=== PATIENT | male | born 1975 | race Caucasian/White ===

== ENCOUNTER 2017-09-21 12:08 | Inpatient (IN) | payer OTHER ==
[2017-09-21] MEDS ORDERED: SODIUM CHLORIDE 0.9% 1000 ML INFUS.BAG IV ONE ×2 (14:05→18:21)
[2017-09-21] MEDS ORDERED: ONDANSETRON 4 MG/2 ML VIAL IVPUSH ONE (14:05)
[2017-09-21] MEDS ORDERED: ONDANSETRON 4 MG/2 ML VIAL ONE (14:13)
[2017-09-21 15:08] LABS: ALBUMIN 4.5 g/dl (3.4-5.0); ALK PHOS 77 U/L (45-117); ANION GAP 10 (8-16); BILIRUBIN,TOTAL 0.4 mg/dL (0.2-1.0); BLOOD UREA NITROGEN 19 mg/dL (7-18); CALCIUM 9.2 mg/dL (8.5-10.1); CHLORIDE 105 mmol/L (98-107); CO2 26 mmol/L (21-32); CREATININE 0.6 mg/dL (0.7-1.3); GLUCOSE,RANDOM 142 mg/dL (74-106); LIPASE 46 U/L (73-393); SGPT/ALT 31 U/L (12-78); SODIUM 141 mmol/L (136-145); TOT PROT 8.2 g/dl (6.4-8.2)
[2017-09-21 15:10] LABS: POTASSIUM 4.7 mmol/L (3.5-5.1); SGOT/AST 40 U/L (15-37)
[2017-09-21] MEDS ORDERED: FAMOTIDINE 20 MG/50 ML IVPB 20 MG/50 ML MG IVPB ONE (15:15)
[2017-09-21 15:18] LABS: HEMOGLOBIN 13.6 GM/dL (11.7-16.9)
--- NOTE | 2017-09-21 15:32 | PDOC ---
Attending Attestation - HPI HPI: 09/21/17 15:41 The patient is a 42-year-old male with no significant past medical history, who presents to the emergency department with worsening epigastric abdominal pain. He states the pain started 2 weeks ago, but worsened today. He states the pain radiates to the left back. He endorses nausea and 7 episodes of non-bloody non- bilious vomiting today. The patient denies chest pain, shortness of breath, headache and dizziness. The patient denies fever, chills, diarrhea and constipation. The patient denies dysuria, frequency, urgency and hematuria. He denies alcohol use or tobacco use. - Physicial Exam PE: 09/21/17 15:41 GENERAL: Awake, alert, and fully oriented, in no acute distress HEAD: No signs of trauma EYES: PERRLA, EOMI, sclera anicteric, conjunctiva clear ENT: Auricles normal inspection, hearing grossly normal, nares patent, oropharynx clear without exudates. Moist mucosa NECK: Normal ROM, supple, no lymphadenopathy, JVD, or masses LUNGS: Breath sounds equal, clear to auscultation bilaterally. No wheezes, and no crackles HEART: Regular rate and rhythm, normal S1 and S2, no murmurs, rubs or gallops ABDOMEN: Soft, (+) mild epigastric tenderness, normoactive bowel sounds. No guarding, no rebound. No masses. No CVA ttp. EXTREMITIES: Normal range of motion, no edema. No clubbing or cyanosis. No cords, erythema, or tenderness NEUROLOGICAL: Cranial nerves II through XII grossly intact. Normal speech. SKIN: Warm, Dry, normal turgor, no rashes or lesions noted. BEDSIDE ULTRASOUND: reveals stone in the gallbladder, will order an official. <Kaycee Sawant - Last Filed: 09/21/17 16:03> - Resident Resident Name: Ezekiel Marinelli - ED Attending Attestation I have performed the following: I have examined & evaluated the patient, The case was reviewed & discussed with the resident, I agree w/resident's findings & plan, Exceptions are as noted - Medical Decision Making 09/21/17 15:31 I, Dr. Marjorie Soria, DO, attest that this document has been prepared under my direction and personally reviewed by me in its entirety. I further attest, that it accurately reflects all work, treatment, procedures and medical decision -making performed by me. 09/21/17 15:31 42yo male with epigastric pain today assoc with n/v -burning sensation -suspect gastritis - will check labs, bedside RUQ u/s -will medicated with GI meds and reassess -no cp -no f/c no ruq ttp -no cva ttp no urinary complaints. 09/21/17 16:06 pt with a gallstone on bedside ultrasound - will send for formal u/s given epigastric pain radiating around to the back, elevated AST, n/v 09/21/17 18:15 pt with gallbladder wall thickening, elevated wbc, elevated ast concern for acute priti case discussed with dr. Paulson from surgery - place in obs under medicine npo type and screen coags abx plan for surgery tomorrow 09/21/17 18:[address] bueno for obs placement 09/21/17 18:21 pt updated on plan - agrees to stay for further evaluation 09/21/17 18:[address] Bueno who accept pt to service <Marjorie Soria - Last Filed: 09/21/17 18:34>
[2017-09-21 15:53] LABS: BASO % 0.7 % (0-2.0); EOS % 0.6 % (0-4.5); LYMPH % 5.1 % (8-40); MEAN CELL VOLUME 91.4 fl (80-96); MONO % 2.2 % (3.8-10.2); NEUT % 91.4 % (42.8-82.8); RBC 4.27 M/mm3 (4.00-5.60); WHITE BLOOD COUNT 12.5 K/mm3 (4.0-10.0)
--- NOTE | 2017-09-21 18:14 | PDOC ---
History of Present Illness - General Chief Complaint: Pain Stated Complaint: ABD PAIN Time Seen by Provider: 09/21/17 13:51 History Source: Patient Exam Limitations: No Limitations - History of Present Illness Initial Comments: 09/21/17 18:15 The patient is a 42M with no PMH who presents to the ER with 2 weeks of epigastric abdominal pain. The patient states that his pain is sharp in nature, was previously intermittent but has been constant today, and radiates to his back. He states that he vomited 6 times today which initially started green and then turned to look like coffee-grounds. He denies any fever, chills, CP, SOB. He denies any history of smoking, drinking, recreational drugs, and abdominal surgeries. Past History - Past Medical History Allergies/Adverse Reactions: Allergies Allergy/AdvReac Type Severity Reaction Status Date / Time No Known Allergies Allergy Verified 09/21/17 12:17 COPD: No - Suicide/Smoking/Psychosocial Hx Smoking History: Never smoked Information on smoking cessation initiated: No Hx Alcohol Use: No Drug/Substance Use Hx: No Substance Use Type: None Review of Systems - Review of Systems Able to Perform ROS?: Yes Comments:: 09/21/17 18:22 GENERAL/CONSTITUTIONAL: No fever or chills. No weakness. HEAD, EYES, EARS, NOSE AND THROAT: No change in vision. No ear pain or discharge. No sore throat. CARDIOVASCULAR: No chest pain, palpitations, or lightheadedness. RESPIRATORY: No cough, wheezing, shortness of breath, or hemoptysis. GASTROINTESTINAL: Positive for abdominal pain, nausea, and vomiting. No diarrhea or constipation. GENITOURINARY: No dysuria, frequency, hematuria, or change in urination. MUSCULOSKELETAL: No joint or muscle swelling or pain. No neck or back pain. SKIN: No rash or lesions. NEUROLOGIC: No headache, numbness, tingling, weakness, loss of consciousness, or change in strength/sensation. ENDOCRINE: No increased thirst. No abnormal weight change. HEMATOLOGIC/LYMPHATIC: No anemia, easy bleeding, or history of blood clots. ALLERGIC/IMMUNOLOGIC: No hives or skin allergy. Is the patient limited Kyrgyz proficient: No *Physical Exam - Vital Signs Last Vital Signs Temp Pulse Resp BP Pulse Ox 98.4 F 67 18 130/85 100 09/21/17 12:19 09/21/17 12:19 09/21/17 12:19 09/21/17 12:19 09/21/17 12:19 - Physical Exam Comments: 09/21/17 18:23 GENERAL: Well developed, well nourished. Awake and alert. No acute distress. HEENT: Normocephalic, atraumatic. Hearing grossly normal. Moist mucous membranes. PERRLA, EOMI. No conjunctival pallor. Sclera are non-icteric. NECK: Supple. Full ROM. No JVD. CARDIOVASCULAR: Regular rate and rhythm. No murmurs, rubs, or gallops. PULMONARY: No evidence of respiratory distress. Lungs clear to auscultation bilaterally. No wheezing, rales or rhonchi. ABDOMINAL: Soft. Non-distended. Tender to deep palpation over epigastrium. Negative Thomas's. No RLQ tenderness. GENITOURINARY: No CVA tenderness bilaterally. MUSCULOSKELETAL: Normal range of motion at all joints. No bony deformities or tenderness. EXTREMITIES: No cyanosis. No clubbing. No edema. No calf tenderness. SKIN: Warm and dry. Normal capillary refill. No rashes. No jaundice. NEUROLOGICAL: Alert, awake, appropriate. Cranial nerves 2-12 intact. Normal speech. Gait is normal without ataxia. PSYCHIATRIC: Cooperative. Good eye contact. Appropriate mood and affect. ED Treatment Course - LABORATORY CBC & Chemistry Diagram: 09/22/17 07:00 09/22/17 07:00 - ADDITIONAL ORDERS Additional order review: Laboratory Results 09/21/17 13:13 Sodium 141 Potassium 4.7 Chloride 105 Carbon Dioxide 26 Anion Gap 10 BUN 19 H Creatinine 0.6 L Creat Clearance w eGFR > 60 Random Glucose 142 H Calcium 9.2 Total Bilirubin 0.4 AST 40 H ALT 31 Alkaline Phosphatase 77 Total Protein 8.2 Albumin 4.5 Lipase 46 L 09/21/17 13:13 RBC 4.27 MCV 91.4 MCHC 35.0 RDW 14.0 Neutrophils % 91.4 H Lymphocytes % 5.1 L Monocytes % 2.2 L Eosinophils % 0.6 Basophils % 0.7 - Medications Given in the ED: ED Medications Discontinued Medications Generic Name Dose Route Start Last Admin Trade Name Freq PRN Reason Stop Dose Admin Famotidine/Sodium Chloride 20 mg in 50 mls @ 100 mls/hr 09/21/17 15:15 15:11 Pepcid 20 Mg Premixed Ivpb - IVPB 09/21/17 15:44 100 mls/hr ONCE ONE Administration Ondansetron HCl 4 mg 09/21/17 14:05 09/21/17 14:23 Zofran Injection IVPUSH 09/21/17 14:06 4 mg ONCE ONE Administration Sodium Chloride 1,000 ml 09/21/17 14:05 09/21/17 14:24 Normal Saline - IV 09/21/17 14:06 1,000 ml ONCE ONE Administration Medical Decision Making - Medical Decision Making 09/21/17 18:12 The patient is a 42M with no PMH who presents with epigastric pain radiating to his back. He has no hx of drinking but has TTP over his abdomen making me concerned for pancreatitis, PUD, or hepatobiliary pathology such as cholecystitis. Labs negative. RUQ U/S read: Cholelithiasis is identified. There is mild to moderate diffuse gallbladder wall thickening which may be acute or chronic in nature. No definite biliary tract dilatation is seen. Dr. Paulson recommends obs admission for surgical removal. Dr. Mcadams has been paged 09/21/17 18:35 Dr. Mcadams accepts admission. *DC/Admit/Observation/Transfer Diagnosis at time of Disposition: Cholelithiasis Qualifiers: Cholelithiasis location: other site Biliary obstruction: without biliary obstruction Qualified Code(s): K80.80 - Other cholelithiasis without obstruction - Discharge Dispostion Condition at time of disposition: Stable Admit: Yes - Referrals - Patient Instructions - Post Discharge Activity
[2017-09-21] MEDS ORDERED: AMPICILLIN NA/SULBACTAM NA 1.5 GM in SODIUM CHLORIDE 100 ML IVPB ONE (18:20)
[2017-09-21] MEDS ORDERED: SODIUM CHLORIDE 1,000 ML IV SCH (18:30)
[2017-09-21 18:59] LABS: PLATELET ESTIMATE ADEQUATE
[2017-09-21] MEDS ORDERED: HYDROmorphone HCL CARPU-JECT 1 MG/1 ML DISP.SYRIN IVPB PRN (20:05)
[2017-09-21] MEDS ORDERED: ONDANSETRON 4 MG/2 ML VIAL IVPB PRN (20:07)
[2017-09-21] MEDS ORDERED: morphine SULFATE 4 MG/ML VIAL IVPB PRN (20:13)
[2017-09-21 20:33] LABS: INR 1.13 (0.82-1.09); PROTHROMBIN TIME (PATIENT) 12.8 SEC (9.98-11.88)
[2017-09-21 20:36] LABS: ACTIVATED PTT 36.9 SECONDS (26.9-34.4)
--- NOTE | 2017-09-21 20:57 | HP ---
Admitting History and Physical - Primary Care Physician PCP: Stephanie Mcadams - Admission Chief Complaint: abdominal pain History of Present Illness: 42M with no PMH who presents to the ER with 2 weeks of epigastric abdominal pain. The patient states that his pain is sharp in nature, was previously intermittent but has been constant today, and radiates to his back. He states that he vomited 6 times today which initially started green and then turned to look like coffee-grounds. He denies any fever, chills, CP, SOB. He denies any history of smoking, drinking, recreational drugs, and abdominal surgeries. - Smoking History Smoking history: Never smoked - Alcohol/Substance Use Hx Alcohol Use: No Home Medications - Allergies Allergies/Adverse Reactions: Allergies Allergy/AdvReac Type Severity Reaction Status Date / Time No Known Allergies Allergy Verified 09/21/17 12:17 Physical Examination Vital Signs: Vital Signs Temperature 98.4 F 09/21/17 12:19 Pulse Rate 67 09/21/17 12:19 Respiratory Rate 18 09/21/17 12:19 Blood Pressure 130/85 09/21/17 12:19 O2 Sat by Pulse Oximetry (%) 100 09/21/17 12:19 Constitutional: Yes: No Distress HENT: Yes: Atraumatic Neck: Yes: Supple Cardiovascular: Yes: Regular Rate and Rhythm Respiratory: Yes: CTA Bilaterally Gastrointestinal: Yes: Normal Bowel Sounds Extremities: Yes: WNL Peripheral Pulses WNL: Yes Neurological: Yes: Alert, Oriented Labs: CBC, BMP 09/21/17 13:13 09/21/17 13:13 Imaging - Results Ultrasound: Report Reviewed Problem List - Problems (1) Cholelithiasis Assessment/Plan: npo, ivf iv abx gi/surgery consult Code(s): K80.20 - CALCULUS OF GALLBLADDER W/O CHOLECYSTITIS W/O OBSTRUCTION Qualifiers: Cholelithiasis location: other site Biliary obstruction: without biliary obstruction Qualified Code(s): K80.80 - Other cholelithiasis without obstruction Assessment/Plan Laboratory Tests 09/21/17 09/21/17 09/21/17 13:13 13:13 19:30 WBC 12.5 H RBC 4.27 Hgb 13.6 Hct 39.0 MCV 91.4 MCH 32.0 MCHC 35.0 RDW 14.0 Plt Count No Result Required. Neutrophils % 91.4 H Lymphocytes % 5.1 L Monocytes % 2.2 L Eosinophils % 0.6 Basophils % 0.7 Platelet Estimate Adequate Platelet Comment PT with INR 12.80 H INR 1.13 PTT (Actin FS) 36.9 H Sodium 141 Potassium 4.7 Chloride 105 Carbon Dioxide 26 Anion Gap 10 BUN 19 H Creatinine 0.6 L Creat Clearance w eGFR > 60 Random Glucose 142 H Calcium 9.2 Total Bilirubin 0.4 AST 40 H ALT 31 Alkaline Phosphatase 77 Total Protein 8.2 Albumin 4.5 Lipase 46 L Active Medications Generic Name Dose Route Start Last Admin Trade Name Freq PRN Reason Stop Dose Admin Sodium Chloride 1,000 mls @ 75 mls/hr 09/21/17 20:15 Normal Saline - IV ASDIR ESMER Morphine Sulfate 2 mg 09/21/17 20:13 Morphine Sulfate IVPB Q4H PRN PAIN SCALE 6-10 Ondansetron HCl 4 mg 09/21/17 20:07 Zofran Injection IVPB Q4H PRN NAUSEA AND/OR VOMITING
[2017-09-21] MEDS: SODIUM CHLORIDE 1,000 ML IV SCH (21:14)
[2017-09-22 00:51] VITALS: BMI 28.3
[2017-09-22] MEDS: PIPERACILLIN/TAZOB 3.375 GM 3.375 GM in DEXTROSE 5%-WATER - 50 ML IVPB SCH ×2 (01:36→09:33)
[2017-09-22 08:28] LABS: BASO % 1.1 % (0-2.0); EOS % 10.8 % (0-4.5); HEMATOCRIT 35.9 % (35.4-49); HEMOGLOBIN 12.2 GM/dL (11.7-16.9); LYMPH % 22.2 % (8-40); MCH 31.4 pg (25.7-33.7); MEAN CELL VOLUME 92.2 fl (80-96); MEAN PLT VOLUME 8.9 fl (7.5-11.1); MONO % 5.4 % (3.8-10.2); NEUT % 60.5 % (42.8-82.8); PLATELET COUNT 214 K/MM3 (134-434); RBC 3.89 M/mm3 (4.00-5.60); RDW 13.8 % (11.9-15.9); WHITE BLOOD COUNT 7.2 K/mm3 (4.0-10.0)
[2017-09-22 08:56] LABS: ALBUMIN 3.6 g/dl (3.4-5.0); ANION GAP 10 (8-16); BLOOD UREA NITROGEN 13 mg/dL (7-18); CALCIUM 8.3 mg/dL (8.5-10.1); CHLORIDE 109 mmol/L (98-107); CO2 25 mmol/L (21-32); GLUCOSE,RANDOM 103 mg/dL (74-106); POTASSIUM 3.8 mmol/L (3.5-5.1); SODIUM 144 mmol/L (136-145)
[2017-09-22 09:00] LABS: ALK PHOS 64 U/L (45-117); BILIRUBIN,TOTAL 0.7 mg/dL (0.2-1.0); CREATININE 0.5 mg/dL (0.7-1.3); SGOT/AST 12 U/L (15-37); SGPT/ALT 21 U/L (12-78); TOT PROT 6.5 g/dl (6.4-8.2)
[2017-09-22 11:37] LABS: URINE APPEARANCE CLEAR; URINE BILIRUBIN NEGATIVE (<2.0 mg/dL); URINE BLOOD NEGATIVE (NEGATIVE); URINE COLOR YELLOW; URINE GLUCOSE (UA) NEGATIVE (NEGATIVE); URINE KETONE NEGATIVE (NEGATIVE); URINE LEUK ESTERASE NEGATIVE (NEGATIVE); URINE NITRITE NEGATIVE (NEGATIVE); URINE PROTEIN NEGATIVE (NEGATIVE); URINE UROBILINOGEN NEGATIVE mg/dL (0.2-1.0)
--- NOTE | 2017-09-22 12:21 | CON.ID ---
Consult Consult Specialty:: infectious diseases Reason for Consultation:: epigastric pain - History of Present Illness Chief Complaint: abd pain ruq and mid epigastric History of Present Illness: The patient is a 42-year-old male with no significant past medical history, admitted because of worsening epigastric abdominal pain. He states the pain started 2 weeks ago, but worsened today. He states the pain radiates to the left back. He endorses nausea and 7 episodes of non-bloody non-bilious vomiting currently patient feels better. he mentions that the pain is mainly epigastric and denies rt upper quadrant pain on admission patient had leukocytosis which ahs since then resolved - History Source History Provided By: Patient, Medical Record Limitations to Obtaining History: Language Barrier - Alcohol/Substance Use Hx Alcohol Use: No - Smoking History Smoking history: Never smoked Home Medications - Allergies Allergies/Adverse Reactions: Allergies Allergy/AdvReac Type Severity Reaction Status Date / Time No Known Allergies Allergy Verified 09/21/17 12:17 Review of Systems - Review of Systems Constitutional: reports: No Symptoms Eyes: reports: No Symptoms HENT: reports: No Symptoms Neck: reports: No Symptoms Cardiovascular: reports: No Symptoms Respiratory: reports: No Symptoms Gastrointestinal: reports: Abdominal Pain, Nausea, Vomiting Musculoskeletal: reports: No Symptoms Integumentary: reports: No Symptoms Neurological: reports: No Symptoms Endocrine: reports: No Symptoms Hematology/Lymphatic: reports: No Symptoms Psychiatric: reports: No Symptoms Physical Exam Vital Signs: Vital Signs Temperature 98.9 F 09/22/17 09:00 Pulse Rate 71 09/22/17 09:00 Respiratory Rate 16 09/22/17 09:00 Blood Pressure 123/73 09/22/17 09:00 O2 Sat by Pulse Oximetry (%) 98 09/21/17 22:00 Constitutional: Yes: Well Nourished, No Distress, Calm Cardiovascular: Yes: Regular Rate and Rhythm Respiratory: Yes: Regular, CTA Bilaterally Gastrointestinal: Yes: Normal Bowel Sounds, Soft Musculoskeletal: Yes: WNL Extremities: Yes: WNL Neurological: Yes: Alert, Oriented Psychiatric: Yes: Alert, Oriented Labs: CBC, BMP 09/22/17 07:00 09/22/17 07:00 Assessment/Plan Problem List - Problems (1) Cholelithiasis Code(s): K80.20 - CALCULUS OF GALLBLADDER W/O CHOLECYSTITIS W/O OBSTRUCTION Qualifiers: Cholelithiasis location: other site Biliary obstruction: without biliary obstruction Qualified Code(s): K80.80 - Other cholelithiasis without obstruction plan continue current mgmt await for surgery to see the patient once we know the plan we can switch to oral abx rest as per the team
--- NOTE | 2017-09-22 12:58 | CON.GI ---
Consult Consult Specialty:: GI Reason for Consultation:: epigastric pain - History of Present Illness History of Present Illness: chart reviewed. per ED intake: 42M no significant past medical history, who presents to the emergency department with worsening epigastric abdominal pain. He states the pain started 2 weeks ago, but worsened today. He states the pain radiates to the left back. He endorses nausea and 7 episodes of non-bloody non-bilious vomiting today. The patient denies chest pain, shortness of breath, headache and dizziness. The patient denies fever, chills, diarrhea and constipation. The patient denies dysuria, frequency, urgency and hematuria. He denies alcohol use or tobacco use. US of the RUQ: cholelithiasis, thickend GB wall. No pericholecystic fluid. Normal CBD. On Unasyn, morphine and zofran Mild leukocytosis on admission, resolved Normal liver chemistry, bilirubin and ALP At the time of this encounter, the patient is eating regular diet, not in pain, comfortable. Denies jaundice, chills, fever in the last 2 weeks. The epigastric pain is unrelated to diet. No alleviating, or aggravating factors. Had very mild, self-limited epigastric pain 2 weeks ago. Reports no history of dysphagia , odynophagia, GERD-like symptoms. No history of suspected PUD, pancreatitis, or liver disease. No chronic NSAIDs, Alcohol. Not on any chronic medications at home - History Source History Provided By: Patient, Medical Record Limitations to Obtaining History: No Limitations - Alcohol/Substance Use Hx Alcohol Use: No - Smoking History Smoking history: Never smoked Home Medications - Allergies Allergies/Adverse Reactions: Allergies Allergy/AdvReac Type Severity Reaction Status Date / Time No Known Allergies Allergy Verified 09/21/17 12:17 Family Disease History - Family Disease History Family History: Unremarkable Review of Systems Findings/Remarks: as per HPI, H&P Physical Exam-GI Vital Signs: Vital Signs Temperature 98.9 F 09/22/17 09:00 Pulse Rate 71 09/22/17 09:00 Respiratory Rate 16 09/22/17 09:00 Blood Pressure 123/73 09/22/17 09:00 O2 Sat by Pulse Oximetry (%) 98 09/21/17 22:00 Constitutional: Yes: No Distress Eyes: Yes: Conjunctiva Clear HENT: Yes: Atraumatic Neck: Yes: Supple Cardiovascular: Yes: Regular Rate and Rhythm. No: Bradycardia, Tachycardia Respiratory: Yes: Regular, CTA Bilaterally ...Auscultate: Yes: Normoactive Bowel Sounds ...Palpate: Yes: Soft, Other (negative hector's). No: Firm/Rigid, Guarding, Mass, Tenderness Neurological: Yes: Alert, Oriented Labs: CBC, BMP 09/22/17 07:00 09/22/17 07:00 INR, PTT INR 1.13 (0.82-1.09) 09/21/17 19:30 Laboratory Tests 09/21/17 09/21/17 09/21/17 13:13 13:13 19:30 WBC 12.5 H RBC 4.27 Hgb 13.6 Hct 39.0 MCV 91.4 MCH 32.0 MCHC 35.0 RDW 14.0 Plt Count No Result Required. MPV Neutrophils % 91.4 H Lymphocytes % 5.1 L Monocytes % 2.2 L Eosinophils % 0.6 Basophils % 0.7 Platelet Estimate Adequate Platelet Comment PT with INR 12.80 H INR 1.13 PTT (Actin FS) 36.9 H Sodium 141 Potassium 4.7 Chloride 105 Carbon Dioxide 26 Anion Gap 10 BUN 19 H Creatinine 0.6 L Creat Clearance w eGFR > 60 Random Glucose 142 H Calcium 9.2 Total Bilirubin 0.4 AST 40 H ALT 31 Alkaline Phosphatase 77 Total Protein 8.2 Albumin 4.5 Lipase 46 L Urine Color Urine Appearance Urine pH Ur Specific [place] Urine Protein Urine Glucose (UA) Urine Ketones Urine Blood Urine Nitrite Urine Bilirubin Urine Urobilinogen Ur Leukocyte Esterase Blood Type Antibody Screen 09/21/17 09/22/17 09/22/17 19:30 07:00 07:00 WBC 7.2 D RBC 3.89 L Hgb 12.2 D Hct 35.9 MCV 92.2 MCH 31.4 MCHC 34.0 RDW 13.8 Plt Count 214 MPV 8.9 Neutrophils % 60.5 D Lymphocytes % 22.2 D Monocytes % 5.4 D Eosinophils % 10.8 H D Basophils % 1.1 Platelet Estimate Platelet Comment PT with INR INR PTT (Actin FS) Sodium 144 Potassium 3.8 Chloride 109 H Carbon Dioxide 25 Anion Gap 10 BUN 13 D Creatinine 0.5 L Creat Clearance w eGFR > 60 Random Glucose 103 D Calcium 8.3 L Total Bilirubin 0.7 D AST 12 L D ALT 21 D Alkaline Phosphatase 64 Total Protein 6.5 D Albumin 3.6 Lipase Urine Color Urine Appearance Urine pH Ur Specific [place] Urine Protein Urine Glucose (UA) Urine Ketones Urine Blood Urine Nitrite Urine Bilirubin Urine Urobilinogen Ur Leukocyte Esterase Blood Type A POSITIVE Antibody Screen Negative 09/22/17 10:45 WBC RBC Hgb Hct MCV MCH MCHC RDW Plt Count MPV Neutrophils % Lymphocytes % Monocytes % Eosinophils % Basophils % Platelet Estimate Platelet Comment PT with INR INR PTT (Actin FS) Sodium Potassium Chloride Carbon Dioxide Anion Gap BUN Creatinine Creat Clearance w eGFR Random Glucose Calcium Total Bilirubin AST ALT Alkaline Phosphatase Total Protein Albumin Lipase Urine Color Yellow Urine Appearance Clear Urine pH 6.0 Ur Specific [place] 1.024 Urine Protein Negative Urine Glucose (UA) Negative Urine Ketones Negative Urine Blood Negative Urine Nitrite Negative Urine Bilirubin Negative Urine Urobilinogen Negative Ur Leukocyte Esterase Negative Blood Type Antibody Screen Imaging - Results Ultrasound: Report Reviewed Problem List - Problems (1) Epigastric abdominal pain Code(s): R10.13 - EPIGASTRIC PAIN (2) Cholelithiasis Code(s): K80.20 - CALCULUS OF GALLBLADDER W/O CHOLECYSTITIS W/O OBSTRUCTION Qualifiers: Cholelithiasis location: other site Biliary obstruction: without biliary obstruction Qualified Code(s): K80.80 - Other cholelithiasis without obstruction Assessment/Plan A 42M with the above-described symptoms, cholelithiasis and leukocytosis on admission. On Unasyn, morphine and Zofran. Asymptomatic and with normal liver chemistry and lipse at the time of this encounter. Symptomatic cholelithiasis ?mild acute/chronic cholecystitis, ? normal liver chemistry. R/o PUD, gastritis, esophagitis Surgical evaluation pending Add PPI po NPO from now IVF EGD would be helpful
[2017-09-22] MEDS: SODIUM CHLORIDE 1,000 ML IV SCH ×2 (16:06→20:22)
--- NOTE | 2017-09-22 17:01 | EKG ---
Test Reason : Blood Pressure : / mmHG Vent. Rate : 074 BPM Atrial Rate : 074 BPM P-R Int : 196 ms QRS Dur : 112 ms QT Int : 394 ms P-R-T Axes : 044 050 032 degrees QTc Int : 437 ms NORMAL SINUS RHYTHM NORMAL ECG NO PREVIOUS ECGS AVAILABLE Confirmed by MD Doc, Bernardino ([id number]) on 09/22/2017 5:01:13 PM Referred By: Confirmed By:Bernardino Roach MD
--- NOTE | 2017-09-22 17:24 | PN ---
Progress Note, Physician History of Present Illness: no pain - Current Medication List Current Medications: Active Medications Sodium Chloride (Normal Saline -) 1,000 mls @ 75 mls/hr IV ASDIR ESMER Last Admin: 09/22/17 16:06 Dose: 75 mls/hr Ampicillin Sodium/Sulbactam (Sodium 3 gm/ Sodium Chloride) 100 mls @ 200 mls/ hr IVPB Q8H-IV ESMER Morphine Sulfate (Morphine Sulfate) 2 mg IVPB Q4H PRN PRN Reason: PAIN SCALE 6-10 Ondansetron HCl (Zofran Injection) 4 mg IVPB Q4H PRN PRN Reason: NAUSEA AND/OR VOMITING - Objective Vital Signs: Vital Signs Temperature 98.2 F 09/22/17 14:44 Pulse Rate 67 09/22/17 14:44 Respiratory Rate 16 09/22/17 14:44 Blood Pressure 101/62 09/22/17 14:44 O2 Sat by Pulse Oximetry (%) 98 09/22/17 09:00 Constitutional: Yes: No Distress HENT: Yes: Atraumatic Neck: Yes: Supple Cardiovascular: Yes: Regular Rate and Rhythm Respiratory: Yes: CTA Bilaterally Gastrointestinal: Yes: Normal Bowel Sounds Extremities: Yes: WNL Labs: CBC, BMP 09/22/17 07:00 09/22/17 07:00 INR, PTT INR 1.13 (0.82-1.09) 09/21/17 19:30 Problem List - Problems (1) Cholelithiasis Assessment/Plan: surgery consult pending possible OR tomorow Code(s): K80.20 - CALCULUS OF GALLBLADDER W/O CHOLECYSTITIS W/O OBSTRUCTION Qualifiers: Cholelithiasis location: other site Biliary obstruction: without biliary obstruction Qualified Code(s): K80.80 - Other cholelithiasis without obstruction
[2017-09-22] MEDS: AMPICILLIN NA/SULBACTAM NA 3 GM in SODIUM CHLORIDE 100 ML IVPB SCH (17:51)
[2017-09-22] MEDS: PANTOPRAZOLE 40 MG TABLET (FP) PO SCH (20:34)
[2017-09-23] MEDS: AMPICILLIN NA/SULBACTAM NA 3 GM in SODIUM CHLORIDE 100 ML IVPB SCH ×2 (01:16→09:41)
--- NOTE | 2017-09-23 07:01 | CONSULT ---
- Consultation REQUESTING PROVIDER: Pema CASTRO CONSULT REQUEST: We have been asked to surgically evaluate this patient for abdominal pain due to symptomatic gallbladder disease PCP:Stephanie Mcadams HISTORY OF PRESENT ILLNESS: 42 y/o male presented w/nausea and vomiting and abdominal pain over # days; w/u reveals cholelithiasis and cholecystitis. PMHx: none PSHx: none Allergies Allergy/AdvReac Type Severity Reaction Status Date / Time No Known Allergies Allergy Verified 09/21/17 12:17 PHYSICAL EXAM: GENERAL: Awake, alert, and fully oriented, in no acute distress. HEAD: Normal with no signs of trauma. EYES: sclera anicteric, conjunctiva clear. NECK: Normal ROM, supple without lymphadenopathy, JVD, or masses. ABDOMEN: Soft, slight RUQ tenderness to palpation, not distended, normoactive bowel sounds, no guarding, no rebound, no masses. No organomegaly. No hernias MUSCULOSKELETAL: Normal ROM at all joints. No bony deformities or tenderness. No CVA tenderness. UPPER EXTREMITIES: 2+ pulses, warm, well-perfused. No cyanosis. Cap refill <2 seconds. No peripheral edema. LOWER EXTREMITIES: 2+ pulses, warm, well-perfused. No calf tenderness. No peripheral edema. NEUROLOGICAL: Normal speech, gait not observed. PSYCH: Cooperative. Good eye contact. Appropriate mood and affect. SKIN: Warm, dry, normal turgor, no rashes or lesions noted. Vital Signs Temperature 99.4 F 09/22/17 16:20 Pulse Rate 66 09/22/17 16:20 Respiratory Rate 20 09/22/17 21:00 Blood Pressure 110/68 09/22/17 16:20 O2 Sat by Pulse Oximetry (%) 98 09/22/17 21:00 Lab Results WBC 7.2 K/mm3 (4.0-10.0) D 09/22/17 07:00 RBC 3.89 M/mm3 (4.00-5.60) L 09/22/17 07:00 Hgb 12.2 GM/dL (11.7-16.9) D 09/22/17 07:00 Hct 35.9 % (35.4-49) 09/22/17 07:00 MCV 92.2 fl (80-96) 09/22/17 07:00 MCHC 34.0 g/dl (32.0-35.9) 09/22/17 07:00 RDW 13.8 % (11.9-15.9) 09/22/17 07:00 Plt Count 214 K/MM3 (134-434) 09/22/17 07:00 Sodium 144 mmol/L (136-145) 09/22/17 07:00 Potassium 3.8 mmol/L (3.5-5.1) 09/22/17 07:00 Chloride 109 mmol/L (98-107) H 09/22/17 07:00 Carbon Dioxide 25 mmol/L (21-32) 09/22/17 07:00 Anion Gap 10 (8-16) 09/22/17 07:00 BUN 13 mg/dL (7-18) D 09/22/17 07:00 Creatinine 0.5 mg/dL (0.7-1.3) L 09/22/17 07:00 Random Glucose 103 mg/dL (74-106) D 09/22/17 07:00 Calcium 8.3 mg/dL (8.5-10.1) L 09/22/17 07:00 Blood Type A POSITIVE 09/21/17 19:30 Antibody Screen Negative 09/21/17 19:30 INR 1.13 (0.82-1.09) 09/21/17 19:30 W/U to date reviewed IMP: acute cholecystitis; cholelithiasis PLAN: D/w patient and family lap priti possible open 09/23/17; he is amenable to this; r/b/t/a's d/w him in [place] including conversion to an open procedure and informed consent obtained. Jerald Paulson MD FACS Visit type - Case Type Case Type: ED Admission - Emergency Emergency Visit: Yes ED Registration Date: 09/21/17 Care time: The patient presented to the Emergency Department on the above date and was hospitalized for further evaluation of their emergent condition. - New patient This patient is new to me today: Yes Date on this admission: 09/23/17 - Critical Care Critical Care patient: No
[2017-09-23] MEDS: PANTOPRAZOLE 40 MG TABLET (FP) PO SCH (09:42)
--- NOTE | 2017-09-23 11:06 | PN ---
Progress Note, Physician - Current Medication List Current Medications: Active Medications Sodium Chloride (Normal Saline -) 1,000 mls @ 75 mls/hr IV ASDIR [facility] Last Admin: 09/22/17 20:22 Dose: Not Given Ampicillin Sodium/Sulbactam (Sodium 3 gm/ Sodium Chloride) 100 mls @ 200 mls/ hr IVPB Q8H-IV [facility] Last Admin: 09/23/17 09:41 Dose: 200 mls/hr Morphine Sulfate (Morphine Sulfate) 2 mg IVPB Q4H PRN PRN Reason: PAIN SCALE 6-10 Ondansetron HCl (Zofran Injection) 4 mg IVPB Q4H PRN PRN Reason: NAUSEA AND/OR VOMITING Pantoprazole Sodium (Protonix -) 40 mg PO DAILY [facility] Last Admin: 09/23/17 09:42 Dose: 40 mg - Objective Vital Signs: Vital Signs Temperature 97.9 F 09/23/17 07:12 Pulse Rate 64 09/23/17 07:12 Respiratory Rate 20 09/23/17 07:12 Blood Pressure 97/50 09/23/17 07:12 O2 Sat by Pulse Oximetry (%) 98 09/22/17 21:00 Labs: CBC, BMP 09/22/17 07:00 09/22/17 07:00 INR, PTT INR 1.13 (0.82-1.09) 09/21/17 19:30
[2017-09-23] MEDS ORDERED: MIDAZOLAM HCL 2 MG/2 ML SINGLE DOSE VIAL ONE (13:39)
[2017-09-23] MEDS ORDERED: ROCURONIUM BROMIDE 50 MG/5 ML VIAL ONE ×2 (13:44→14:13)
[2017-09-23] MEDS ORDERED: PROPOFOL 20 ML ONE (13:45)
[2017-09-23] MEDS ORDERED: BUPIVACAINE HCL/PF 0.5% (5MG/ML) 10 ML VIAL IJ ONE ×2 (14:14→15:14)
[2017-09-23] MEDS ORDERED: LIDOCAINE HCL/PF 2% SDV 5ML VIAL ONE (14:57)
[2017-09-23] MEDS ORDERED: DEXAMETHASONE SOD PHOSPHATE 4 MG/1 ML VIAL ONE (14:57)
[2017-09-23] MEDS ORDERED: GLYCOPYRROLATE 0.2 MG/1 ML VIAL ONE (14:57)
[2017-09-23] MEDS ORDERED: LIDOCAINE HCL 2% JELLY (5 ML/TUBE) ONE (14:57)
[2017-09-23] MEDS ORDERED: NEOSTIGMINE METHYLSULFATE 0.5 MG/ML - 10 ML MDV ONE (14:59)
--- NOTE | 2017-09-23 15:23 | PN ---
Progress Note, Physician - Current Medication List Current Medications: Active Medications Sodium Chloride (Normal Saline -) 1,000 mls @ 75 mls/hr IV ASDIR [facility] Last Admin: 09/22/17 20:22 Dose: Not Given Ampicillin Sodium/Sulbactam (Sodium 3 gm/ Sodium Chloride) 100 mls @ 200 mls/ hr IVPB Q8H-IV [facility] Last Admin: 09/23/17 09:41 Dose: 200 mls/hr Morphine Sulfate (Morphine Sulfate) 2 mg IVPB Q4H PRN PRN Reason: PAIN SCALE 6-10 Ondansetron HCl (Zofran Injection) 4 mg IVPB Q4H PRN PRN Reason: NAUSEA AND/OR VOMITING Pantoprazole Sodium (Protonix -) 40 mg PO DAILY [facility] Last Admin: 09/23/17 09:42 Dose: 40 mg - Objective Vital Signs: Vital Signs Temperature 98.4 F 09/23/17 09:00 Pulse Rate 104 H 09/23/17 09:00 Respiratory Rate 16 09/23/17 09:00 Blood Pressure 127/71 09/23/17 09:00 O2 Sat by Pulse Oximetry (%) 98 09/23/17 09:00 Constitutional: Yes: No Distress HENT: Yes: Atraumatic Neck: Yes: Supple Cardiovascular: Yes: Regular Rate and Rhythm Respiratory: Yes: CTA Bilaterally Gastrointestinal: Yes: Hypoactive Bowel Sounds, Tenderness Extremities: Yes: WNL Labs: CBC, BMP 09/22/17 07:00 09/22/17 07:00 INR, PTT INR 1.13 (0.82-1.09) 09/21/17 19:30 Problem List - Problems (1) Cholelithiasis Assessment/Plan: s/p surgery Code(s): K80.20 - CALCULUS OF GALLBLADDER W/O CHOLECYSTITIS W/O OBSTRUCTION Qualifiers: Cholelithiasis location: other site Biliary obstruction: without biliary obstruction Qualified Code(s): K80.80 - Other cholelithiasis without obstruction
[2017-09-23] MEDS ORDERED: BENZOIN/ALOE VERA/STORAX/TOLU 58 ML BOTTLE ONE (15:26)
[2017-09-23] MEDS ORDERED: oxyCODONE HCL 5 MG TABLET PO PRN (15:48)
[2017-09-23] MEDS ORDERED: SODIUM CHLORIDE 1,000 ML IV SCH (15:57)
[2017-09-23] MEDS ORDERED: ONDANSETRON 4 MG/2 ML VIAL IVPB PRN (15:57)
[2017-09-23] MEDS ORDERED: ONDANSETRON 4 MG/2 ML VIAL IVPUSH PRN (15:59)
--- NOTE | 2017-09-23 15:59 | OP ---
Operative Note - Note: Operative Date: 09/23/17 Pre-Operative Diagnosis: cholelithiasis, acute cholecystitis Operation: laparoscopic cholecystectomy Post-Operative Diagnosis: Same as Pre-op Surgeon: Jerald Paulson Content Strategist: June Lion Anesthesiologist/RECORDS CLERK: Jennifer Guerrier MD Anesthesia: General Specimens Removed: gallbladder Estimated Blood Loss (mls): 25 Fluid Volume Replaced (mls): 1,200 Operative Report Dictated: Yes
[2017-09-23] MEDS ORDERED: LACTATED RINGERS SOLUTION 1,000 ML IV SCH (16:00)
--- NOTE | 2017-09-23 16:01 | SURG ---
Surgery Automobile Radio Repairer Note Automobile Radio Repairer: June Lion PA-C Date of Service: 09/23/17 Diagnosis: Cholelithiasis, acute cholecystitis Procedure: laparoscopic cholecystectomy I was present for the entirety of the operative procedure. For further detail, please refer to operative report. Visit type - Case Type Case Type: ED Admission - Emergency Emergency Visit: Yes ED Registration Date: 09/21/17 Care time: The patient presented to the Emergency Department on the above date and was hospitalized for further evaluation of their emergent condition. - New patient This patient is new to me today: Yes Date on this admission: 09/23/17
[2017-09-23] MEDS: ACETAMINOPHEN 325 MG TABLET (FP) PO PRN (18:50)
[2017-09-23] MEDS: oxyCODONE HCL 5 MG TABLET PO PRN (18:51)
[2017-09-23] MEDS: HEPARIN NA (PORCINE) 5,000 UNITS/ML 1ML VIAL SQ SCH (21:24)
[2017-09-24] MEDS: HEPARIN NA (PORCINE) 5,000 UNITS/ML 1ML VIAL SQ SCH ×2 (06:10→15:37)
[2017-09-24 08:06] LABS: BASO % 0.6 % (0-2.0); EOS % 0.9 % (0-4.5); HEMATOCRIT 34.4 % (35.4-49); HEMOGLOBIN 12.4 GM/dL (11.7-16.9); LYMPH % 19.2 % (8-40); MCH 32.1 pg (25.7-33.7); MEAN CELL VOLUME 89.3 fl (80-96); MEAN PLT VOLUME 8.5 fl (7.5-11.1); MONO % 6.1 % (3.8-10.2); NEUT % 73.2 % (42.8-82.8); PLATELET COUNT 221 K/MM3 (134-434); RBC 3.85 M/mm3 (4.00-5.60); RDW 13.4 % (11.9-15.9)
--- NOTE | 2017-09-24 08:09 | PN ---
Progress Note (short form) - Note Progress Note: POD#1 Pt without complaints of nausea, tolerated clears and would like more to eat. Voiding without difficulty. Minimal pain. Vital Signs Period Temp Pulse Resp BP Sys/Gomez Pulse Ox Last 24 Hr 97.8 F-99.1 F 67-104 16-18 109-131/20-84 97-100 GEN:A&0x3, NAD CV: RRR Lungs: CTA b/l ABD: soft, non-distended, inc tenderness. Inc c/d/i with bandaids. LE: no calf tenderness, SCDs in place. Problem List - Problems (1) S/P laparoscopic cholecystectomy Assessment/Plan: POD#1, doing well surgically Diet advanced this am to regular cbc/chem with LFTS pending D/w Dr. Paulson, plan for discharge today if labs WNL and tolerates diet DVT ppx with heparin SQ/ambulate/SCDs Code(s): Z90.49 - ACQUIRED ABSENCE OF OTHER SPECIFIED PARTS OF DIGESTIVE TRACT
[2017-09-24 08:29] LABS: ALBUMIN 3.6 g/dl (3.4-5.0); ANION GAP 11 (8-16); CALCIUM 8.3 mg/dL (8.5-10.1); CHLORIDE 103 mmol/L (98-107); CO2 26 mmol/L (21-32); GLUCOSE,RANDOM 94 mg/dL (74-106); POTASSIUM 3.5 mmol/L (3.5-5.1); SODIUM 140 mmol/L (136-145)
[2017-09-24 08:34] LABS: ALK PHOS 67 U/L (45-117); BILIRUBIN,TOTAL 0.5 mg/dL (0.2-1.0); BLOOD UREA NITROGEN 11 mg/dL (7-18); CREATININE 0.5 mg/dL (0.7-1.3); SGOT/AST 16 U/L (15-37); SGPT/ALT 22 U/L (12-78); TOT PROT 6.5 g/dl (6.4-8.2)
[2017-09-24] MEDS ORDERED: PANTOPRAZOLE 40 MG TABLET (FP) PO SCH (10:00)
[2017-09-24] MEDS: oxyCODONE HCL 5 MG TABLET PO PRN (10:25)
[2017-09-24] MEDS: ACETAMINOPHEN 325 MG TABLET (FP) PO PRN (10:26)
--- NOTE | 2017-09-24 10:47 | OP ---
DATE OF OPERATION: 09/23/2017 PREOPERATIVE DIAGNOSIS: Acute cholecystitis and cholelithiasis. POSTOPERATIVE DIAGNOSIS: Acute cholecystitis and cholelithiasis. PROCEDURE: Laparoscopic cholecystectomy. SURGEON: Jerald Paulson MD SAW HANDLE ASSEMBLER: June Lion PA-C ANESTHESIA: General. OPERARTIVE FINDINGS: Acute cholecystitis and cholelithiasis. The rest of the findings were unremarkable. DESCRIPTION OF PROCEDURE: The patient was placed on the operating room table in supine position. After the induction of general anesthesia, the patient's abdomen was prepped with ChloraPrep and draped in sterile fashion. Time-out was taken and then pneumoperitoneum established above the umbilicus using a Veress needle. Once 15 mm of intra-abdominal pressure was obtained, a 5-mm port was placed at the umbilicus. Additional lateral 5-mm ports and a subxiphoid 12-mm port were placed and laparoscopy carried out, and the previously noted findings were observed. The gallbladder was placed on cephalad and lateral traction, and dissection was begun at the neck of the gallbladder where the peritoneum was opened medially and laterally using blunt and sharp dissection and electrocautery. Dissection continued in the triangle of Calot where the cystic duct was identified coursing from the neck of the gallbladder distally to the common bile duct. It was dissected proximally and distally for length. Similarly, the artery was similarly identified and dissected. A critical view of safety was taken, and then the cystic duct divided proximally and distally using Endo Simon after it was clipped twice proximally and distally with large hemoclips. The artery was similarly clipped and divided. Hemostasis was checked for and noted to be good and then the gallbladder was removed from the liver bed in a retrograde fashion using electrocautery. Prior to removal from the edge of the liver, hemostasis was again verified and then the gallbladder removed from the edge of the liver, placed in an EndoCatch, and brought out through the subxiphoid port. Pneumoperitoneum was reestablished, hemostasis verified again, and then the 5-mm lateral and subxiphoid ports were removed under laparoscopic vision without evidence of bleeding from the port sites. The umbilical port was removed and the pneumoperitoneum evacuated. All port sites were infiltrated with 0.5% Marcaine and the skin edges closed with 4-0 Biosyn in a subcuticular and continuous fashion. Steri-Strips and Band-Aid dressings were placed and the procedure terminated at this point and the patient aroused from general anesthesia and transferred to the post anesthesia care unit in stable condition awake and alert. ESTIMATED BLOOD LOSS: 25 mL. REPLACEMENTS: Crystalloid. DRAINS: None. SPECIMENS: Gallbladder and contents to pathology. I, Jerald Paulson, was physically present in the operating room from the time the patient was placed on the operating room table until he was transferred to the post anesthesia care unit in my company. MD HARI Muñoz/[id number] MTDD
--- NOTE | 2017-09-24 14:23 | PN ---
Progress Note, Physician - Current Medication List Current Medications: Active Medications Acetaminophen (Tylenol -) 650 mg PO Q4H PRN PRN Reason: FEVER Last Admin: 09/24/17 10:26 Dose: 650 mg Heparin Sodium (Porcine) (Heparin -) 5,000 unit SQ TID [facility] Last Admin: 09/24/17 06:10 Dose: 5,000 unit Ondansetron HCl (Zofran Injection) 4 mg IVPB Q4H PRN PRN Reason: NAUSEA AND/OR VOMITING Ondansetron HCl (Zofran Injection) 4 mg IVPUSH Q6H PRN PRN Reason: NAUSEA AND/OR VOMITING Oxycodone HCl (Roxicodone -) 5 mg PO Q4H PRN PRN Reason: PAIN LEVEL 1-5 Oxycodone HCl (Roxicodone -) 10 mg PO Q4H PRN PRN Reason: PAIN LEVEL 6-10 Last Admin: 09/24/17 10:25 Dose: 10 mg Pantoprazole Sodium (Protonix -) 40 mg PO DAILY [facility] Last Admin: 09/24/17 10:26 Dose: 40 mg - Objective Vital Signs: Vital Signs Temperature 98.4 F 09/24/17 09:00 Pulse Rate 79 09/24/17 09:00 Respiratory Rate 18 09/24/17 09:00 Blood Pressure 136/83 09/24/17 09:00 O2 Sat by Pulse Oximetry (%) 98 09/24/17 09:00 Labs: CBC, BMP 09/24/17 06:00 09/24/17 06:00 INR, PTT INR 1.13 (0.82-1.09) 09/21/17 19:30
--- NOTE | 2017-09-24 15:31 | PN ---
Progress Note (short form) - Note Progress Note: Anesthesia postop note 42y/o M s/p GA for laparoscopic cholecystecromy POD#1, vss, aaox3, pain well controlled no anesthesia complications.
[2017-09-24 17:16] VITALS: BP 111/59; PULSE 71; TEMP 98.1
--- NOTE | 2017-09-24 18:10 | DS ---
"Physical Examination Vital Signs: Vital Signs Temperature 98.1 F 09/24/17 17:16 Pulse Rate 71 09/24/17 17:16 Respiratory Rate 20 09/24/17 17:16 Blood Pressure 111/59 09/24/17 17:16 O2 Sat by Pulse Oximetry (%) 98 09/24/17 09:00 Constitutional: Yes: No Distress HENT: Yes: Atraumatic Neck: Yes: Supple Cardiovascular: Yes: Regular Rate and Rhythm Respiratory: Yes: CTA Bilaterally Gastrointestinal: Yes: Normal Bowel Sounds, Tenderness (at the surgery site) Extremities: Yes: WNL Edema: No Peripheral Pulses WNL: Yes Neurological: Yes: Alert, Oriented Labs: CBC, BMP 09/24/17 06:00 09/24/17 06:00 Discharge Summary Reason For Visit: CHOLELITHIASIS Current Active Problems Cholelithiasis (Acute) Epigastric abdominal pain (Acute) S/P laparoscopic cholecystectomy (Acute) Condition: Stable - Instructions Diet, Activity, Other Instructions: Dr. Paulson Discharge Instructions Dear AUBREE CONDON, Post Operative Instructions Physical activity Resume your normal everyday activity as tolerated no heavy lifting or exercise until seen by your surgeon. You may walk unlimited amounts of and climb stairs. You may resume driving the car when you feel safe and comfortable behind the wheel. Wound care If you have a bandage, leave it on, and keep dry for 48 - 72 hours. After that time discard the outer bandage. If there are tapes on the skin under the outer bandage, leave them in place. They will peel off in the next 7 to 10 days. Do Not peel them off. You may shower 2 days after surgery. If there are tapes present on the skin, they can get wet. Diet There are no dietary restrictions. Eat healthy, high-fiber foods. Drink 6 to 8 glasses of liquid each day. This will assist in keeping your bowels are regular. Pain management You may take Tylenol or acetaminophen or Ibuprofen (for example, Motrin, Advil etc.) Any pain prescription medication ordered should be taken as prescribed for moderate to severe pain. Call Dr. Paulson for any of the following: Severe pain not relieved by medication Fever of 101 or higher Excessive bleeding or drainage on dressing Inability to urinate Call the office at [phone] for a post operative appointment in 7 - 10 days. This report was requested by: Saira Talley | Reference #: [id number] Disposition: HOME - Home Medications Comprehensive Discharge Medication List: Ambulatory Orders Oxycodone HCl/Acetaminophen [Percocet 5-325 mg Tablet] 1 - 2 tab PO Q6H PRN #20 tab MDD 8 09/24/17 dc home tolerating diet"
--- NOTE | 2017-09-25 15:36 | PATH ---
Surgical Pathology Report Patient Name: AUBREE ODEN Med. Rec. #: [id number] /Age/Gender: 1975 (Age: 42) / M Account: [id number] Location: [facility] MED/SURG Taken: 09/23/2017 Received: 09/24/2017 Reported: 09/25/2017 Physicians: MD Stephanie Broderick M.D. Specimen(s) Received GALLBLADDER Clinical History Cholelithiasis Final Diagnosis GALLBLADDER, CHOLECYSTECTOMY: CHRONIC CHOLECYSTITIS AND CHOLELITHIASIS. Electronically Signed Vincent Carey M.D. Gross Description Received in formalin, labeled "gallbladder," is a 9 x 3 x 2.5 cm. gallbladder with a 1 cm. in length portion of cystic duct attached. The outer surface is varies from smooth to shaggy. The lumen is filled with numerous yellow-swenson to brown choleliths ranging in size from 0.2-0.9 cm admixed with yellow swenson sludge material. The mucosa shows focal hemorrhage and erosions. The wall of the gallbladder measures 0.5 cm. in thickness. Construction Rigger sections are submitted in one cassette. PERLA/09/24/2017 neha/09/24/2017
== END 2017-09-24 19:31 | disposition home or self-care (01) | DRG 263 ==
LOC: JER 12:08 → JERBED 18:36 → J8W 23:10
PROVIDERS: ADMIT Internal Medicine; ATTEND Internal Medicine
PROC: 0FT44ZZ Resection of Gallbladder, Percutaneous Endoscopic Approach (ICD-10-PCS; principal; 2017-09-23 13:00)
DX: K80.00 Calculus of gallbladder with acute cholecystitis without obstruction (principal); R10.13 Epigastric pain; D72.829 Elevated white blood cell count, unspecified
CPT/HCPCS: 36415; 71046-TC-FY; 76705-TC; 80053; 81003; 83690; 85025; 85610; 85730; 86850; 86900; 86901; 88304-TC; 93005; 93010; 94010; 94760; 99283-25; J1644; J7030